=== PATIENT | female | born 2000 | race Caucasian/White ===

== ENCOUNTER 2024-07-21 17:04 | Emergency (ER) | payer OTHER ==
[~2024-07-21] VITALS: Ht 167.6 cm; Wt 86.2 kg
[2024-07-21] MEDS: KETOROLAC TROMETHAMINE 15 MG/ML VIAL IV ONE (17:30)
[2024-07-21] MEDS: IV NS 0.9% 1,000 ML BAG IV ONE (17:30)
[2024-07-21] MEDS: ONDANSETRON HCL/PF 4 MG/2 ML VIAL IVP ONE (17:30)
[2024-07-21] MEDS: FAMOTIDINE/PF INJ 20 MG/2 ML VIAL IV ONE (17:30)
[2024-07-21] MEDS ORDERED: FAMOTIDINE/PF INJ 20 MG/2 ML VIAL IV ONE (18:39)
[2024-07-21] MEDS ORDERED: ONDANSETRON HCL/PF 4 MG/2 ML VIAL ONE (18:39)
[2024-07-21] MEDS ORDERED: KETOROLAC TROMETHAMINE 15 MG/ML VIAL ONE (18:39)
[2024-07-21 18:47] LABS: BASOPHILS % (AUTO) 0.4 % (0.0-2.0); EOSINOPHILS # (AUTO) 0.1 K/uL (0.0-0.7); EOSINOPHILS % (AUTO) 0.9 % (0.0-6.0); HEMATOCRIT 38 % (33-45); HEMOGLOBIN 12.8 g/dL (11.5-14.8); LYMPHOCYTES # (AUTO) 1.4 K/uL (0.8-4.8); LYMPHOCYTES % (AUTO) 16.7 % (20.0-44.0); MEAN CORPUSCULAR HEMOGLOBIN 32 PG (26.0-33.0); MEAN CORPUSCULAR HGB CONC 34 g/dl (31.0-36.0); MEAN CORPUSCULAR VOLUME 93 fL (82-100); MONOCYTES # (AUTO) 0.3 K/uL (0.1-1.30); MONOCYTES % (AUTO) 3.4 % (2.0-12.0); NEUTROPHILS # (AUTO) 6.4 K/uL (1.8-8.9); NEUTROPHILS % (AUTO) 78.6 % (43.0-81.0); PLATELET COUNT (AUTO) 221 K/uL (150-450); RED BLOOD CELL COUNT(AUTO) 4.07 MIL/uL (4.0-5.2); RED CELL DISTRIBUTION WIDTH 13.3 % (11.5-15.0); WHITE BLOOD COUNT (AUTO) 8.2 K/uL (4.3-11.0)
[2024-07-21 19:00] LABS: CALCIUM, SERUM 8.5 mg/dL (8.5-10.1); CREATININE 0.5 mg/dL (0.6-1.3); POTASSIUM 3.8 mmol/L (3.5-5.1)
[2024-07-21 19:07] LABS: ALBUMIN 3.2 g/dL (3.4-5.0); BILIRUBIN,DIRECT 0.1 mg/dL (0.0-0.2); BILIRUBIN,TOTAL 0.3 mg/dL (0.2-1.0); TOTAL PROTEIN, SERUM 6.7 g/dL (6.4-8.2)
[2024-07-21] MEDS ORDERED: ONDA4TAB5 PO (21:48)
[2024-07-21 21:58] VITALS: BP 139/94; TEMP 98.4; O2SAT 100
== END 2024-07-21 21:58 | disposition home or self-care (01) ==
LOC: ER 17:11
DX: O26.891 Other specified pregnancy related conditions, first trimester (principal); R06.02 Shortness of breath; R10.9 Unspecified abdominal pain; R11.2 Nausea with vomiting, unspecified; R10.2 Pelvic and perineal pain; Z3A.10 10 weeks gestation of pregnancy
CPT/HCPCS: 99285; 96374; 76805; 76770; 96375; 96361; 85025; 80048; 83690; 80076; 84702; J1885; J3490; J2405